=== PATIENT | male | born 1970 | race Caucasian/White ===

== ENCOUNTER 2019-04-03 17:32 | Emergency (ER) | payer OTHER ==
[~2019-04-03] VITALS: Ht 165.1 cm; Wt 72.8 kg
[2019-04-03 17:37] VITALS: BP 173/94; PULSE 103; RESP 16; Ht 165.1 cm; Wt 72.8 kg
[2019-04-03] MEDS ORDERED: DIPHTH/TET/ACEL PERTUSS (ADULT) 0.5 ML VIAL IM* ONE (19:00)
== END 2019-04-03 20:17 | disposition home or self-care (01) ==
LOC: E/R 17:32
DX: S01.01XA Laceration without foreign body of scalp, initial encounter (principal); S09.90XA Unspecified injury of head, initial encounter; R40.2412 Glasgow coma scale score 13-15, at arrival to emergency department; W22.8XXA Striking against or struck by other objects, initial encounter; Y92.830 Public park as the place of occurrence of the external cause; Z23 Encounter for immunization
CPT/HCPCS: 90471; 90715